=== PATIENT | male | born 1945 | race Caucasian/White ===

== ENCOUNTER 2020-05-06 11:57 | Emergency (ER) | payer MEDICARE ==
[~2020-05-06] VITALS: Ht 167.6 cm; Wt 93.6 kg
[~2020-05-06 11:57] MED LIST: ACID1TAB7 PO; AMIO200T42 PO; ASPI81TA45 PO; ATOR10TA9 PO; ATORVASTATIN; BENZ-17 PO; CEFD300C37 PO; ERTA1VIA4 IV; FURO80TA3 PO; HYDR-1067 PO; LOSA25TA12 PO; LOSA25TA25 PO; LOSARTAN; METO-95 PO; METO-99 PO; METOPROLOL; OMEP10CA5 PO; OMEPRAZOLE; OXYC5CAP2 PO; POTA20TA6 PO; SPIR25TA PO; TRAZ50TA66 PO; WARF-36 PO
[2020-05-06 12:08] VITALS: BP 109/73
--- NOTE | 2020-05-06 12:27 | NUR ---
PT BROUGHT BACK TO ROOM FROM TRIAGE. PT STATED THAT HE HAD OPEN HEART SURGERY 6 WEEKS AGO AND HAS BEEN GETTING LABS DRAWN FREQUENTLY AT INFECTIOUS DISEASE OFFICE. YESTERDAYS LAB WORK SHOWED HGB 5.7 AND HCT 16. PT WAS TOLD TO COME TO ER FOR LAB RECHECK. PT ALERT AND ORIENTED. SKIN WARM PINK AND DRY. PT DENIES ANY LIGHTHEADEDNESS, DIZZINESS, OR PAIN.
[2020-05-06 13:06] LABS: BASOPHILS % (AUTO) 0 % (0-1); EOSINOPHILS % (AUTO) 0 % (1-7); LYMPHOCYTES % (AUTO) 16 % (22-44); MEAN CORPUSCULAR HEMOGLOBIN 31.9 pg (27.5-34.5); MEAN CORPUSCULAR HGB CONC 33.4 g/dL (33.2-36.2); MEAN PLATELET VOLUME 7.3 fL (7.4-10.4); MONOCYTES % (AUTO) 11 % (2-9); NEUTROPHILS % (AUTO) 72 % (42-75); PLATELET COUNT 290 x10^3/uL (130-400); RED BLOOD COUNT 4.23 x10^6/uL (4.38-5.82); RED CELL DISTRIBUTION WIDTH 18.6 % (9.4-14.8)
[2020-05-06 13:07] LABS: MD NO
[2020-05-06 13:14] LABS: ALBUMIN 3.3 g/dL (3.4-5.0); ANION GAP 6 mmol/L (5-15); CALCIUM 9.2 mg/dL (8.5-10.1); CHLORIDE 102 mmol/L (98-107); CREATININE 1.47 mg/dL (0.7-1.3)
--- NOTE | 2020-05-06 13:14 | NUR ---
PT AMBULATE TO BATHROOM
[2020-05-06 13:17] LABS: INTERNATIONAL NORMALIZED RATIO 1.74 (0.93-1.1); PROTHROMBIN TIME 18.4 Seconds (9.6-11.5)
--- NOTE | 2020-05-06 14:08 | NUR ---
discharge instructions reviewed with pt. all questions answered at this time.
== END 2020-05-06 14:11 | disposition home or self-care (01) ==
LOC: ED 13:50
DX: N28.9 Disorder of kidney and ureter, unspecified (principal); D68.9 Coagulation defect, unspecified
CPT/HCPCS: 36415; 80048; 82040; 85025; 85610; 99283